=== PATIENT | male | born 1960 | race Caucasian/White ===

== ENCOUNTER 2019-05-03 10:34 | Emergency (ER) | payer OTHER ==
[~2019-05-03] VITALS: Ht 182.9 cm; Wt 89.8 kg
[2019-05-03] MEDS ORDERED: IV NORMAL SALINE 1,000ML 1,000 ML IV SCH (10:50)
--- NOTE | 2019-05-03 10:56 | PHYS DOC ---
Adult General Chief Complaint Chief Complaint: DEHYDRATION HPI HPI Patient is a 58-year-old male who presents with complaint of vomiting and diarrhea for the last few days. Patient indicates that he is feeling very dehydrated and that he is having muscle cramps in his abdomen as well as his legs. He denies any chest pain or shortness breath. He also denies any fever. He states that symptoms are worsened if he tries to eat or drink anything.[] Review of Systems Review of Systems Constitutional: Denies fever or chills [] Respiratory: Denies cough or shortness of breath [] Cardiovascular: No additional information not addressed in HPI [] GI: Complains of abdominal cramping with vomiting and diarrhea [] Integument: Denies rash or skin lesions [] Neurologic: Denies headache, focal weakness or sensory changes [] All other systems were reviewed and found to be within normal limits, except as documented in this note. Physical Exam Physical Exam Constitutional: Well developed, well nourished, no acute distress, non-toxic appearance. [] HENT: Normocephalic, atraumatic, bilateral external ears normal, oropharynx moist, no oral exudates, nose normal. [] Eyes: PERRLA, EOMI, conjunctiva normal, no discharge. [] Neck: Normal range of motion, no tenderness, supple, no stridor. [] Cardiovascular:Heart rate regular rhythm, no murmur [] Lungs & Thorax: Bilateral breath sounds clear to auscultation [] Abdomen: Bowel sounds normal, soft, with epigastric tenderness. [] Skin: Warm, dry, no erythema, no rash. [] Extremities: No tenderness, no cyanosis, no clubbing, ROM intact, no edema. [] Neurologic: Alert and oriented X 3, no focal deficits noted. [] EKG EKG [] Radiology/Procedures Radiology/Procedures [] Course & Med Decision Making Course & Med Decision Making Pertinent Labs and Imaging studies reviewed. (See chart for details) [] Dragon Disclaimer Dragon Disclaimer This electronic medical record was generated, in whole or in part, using a voice recognition dictation system. Departure Departure: Impression: Primary Impression: Gastroenteritis Additional Impression: Dehydration Disposition: 01 HOME, SELF-CARE Condition: STABLE Referrals: PCP,UNKNOWN (PCP) Patient Instructions: Dehydration, Adult, Viral Gastroenteritis Scripts Diphenoxylate Hcl/Atropine (LOMOTIL TABLET) 1 Each Tablet 1 TAB PO TID PRN for DIARRHEA, #15 TAB Prov: BRAD TSAI Jr. DO 05/03/19 Ondansetron Hcl (ZOFRAN) 4 Mg Tablet 4 MG PO Q6HRS PRN for NAUSEA, #12 TAB Prov: BRAD TSAI Jr. DO 05/03/19 Problem Qualifiers BRAD TSAI Jr. DO May 03, 2019 10:56
[2019-05-03] MEDS ORDERED: ONDANSETRON PF 4 MG/2 ML VIAL. IV ONE ×2 (11:00→13:00)
[2019-05-03 11:28] LABS: BACTERIA,URINE 0 /HPF (0-FEW); BILIRUBIN,URINE NEG (NEG); CLARITY,URINE HAZY; COLOR,URINE AMBER; GLUCOSE,URINE NEG (NEG); HYALINE CASTS, URINE OCC /HPF; NITRITE,URINE NEG (NEG); RBC,URINE 0 /HPF (0-2); SQUAMOUS EPITHELIAL CELL,UR OCC /LPF; UROBILINOGEN,URINE 1 mg/dL (0.2 mg/dL); WBC,URINE RARE /HPF (0-4)
[2019-05-03 12:04] LABS: ALBUMIN 3.8 g/dL (3.4-5.0); ALBUMIN/GLOBULIN RATIO 0.9 (1.0-1.7); CALCIUM 9.8 mg/dL (8.5-10.1); CREATININE 1.2 mg/dL (0.7-1.3); GFR 61.8; POTASSIUM 3.9 mmol/L (3.5-5.1); TOTAL BILIRUBIN 0.6 mg/dL (0.2-1.0); TOTAL PROTEIN 7.9 g/dL (6.4-8.2)
[2019-05-03] MEDS ORDERED: KETOROLAC 30 MG/ML VIAL. IV ONE (12:30)
[2019-05-03 12:32] LABS: BASO % 0 % (0-3); EOS # 0.1 x10^3/uL (0.0-0.7); EOS % 1 % (0-3); HEMATOCRIT 41.1 % (39.0-53.0); LYMPH # 1.1 x10^3/uL (1.0-4.8); LYMPH % 12 % (24-48); MEAN CORPUSCULAR HEMOGLOBIN 30 pg (25-35); MEAN CORPUSCULAR HGB CONC 34 g/dL (31-37); MEAN CORPUSCULAR VOLUME 89 fL (79-100); MONO # 0.8 x10^3/uL (0.0-1.1); MONO % 9 % (0-9); NEUT % 78 % (31-73); PLATELET COUNT 256 x10^3/uL (140-400); RED BLOOD COUNT 4.64 x10^6/uL (4.30-5.70); RED CELL DISTRIBUTION WIDTH 13.3 % (11.5-14.5)
[2019-05-03] MEDS ORDERED: IV NORMAL SALINE 1,000ML 1,000 ML IV ONE (13:00)
[2019-05-03 14:15] VITALS: BP 100/63
[2019-05-03] MEDS ORDERED: ONDA4TAB7 PO (14:32)
[2019-05-03] MEDS ORDERED: DIPH1TAB PO (14:32)
== END 2019-05-03 14:50 | disposition home or self-care (01) ==
LOC: ER 10:34
DX: K52.9 Noninfective gastroenteritis and colitis, unspecified (principal); E86.0 Dehydration
CPT/HCPCS: 36415; 80053; 81001; 82550; 83690; 85025; 96361; 96374; 96375; 96376; 99285; J1885; J2405; J7030

== ENCOUNTER 2020-06-21 14:04 | Emergency (ER) | payer OTHER ==
[~2020-06-21] VITALS: Ht 182.9 cm; Wt 93.0 kg
[~2020-06-21 14:04] MED LIST: DIPH1TAB PO; ONDA4TAB7 PO
[2020-06-21 14:08] VITALS: BP 147/90
--- NOTE | 2020-06-21 15:26 | RAD ---
HAND RIGHT 3V 06/21/2020 2:19 PM INDICATION: Crush injury to the finger COMPARISON: None available. TECHNIQUE: 3 views of the right hand are provided. FINDINGS/ IMPRESSION: Comminuted fracture of the distal tuft of the third digit. There is a obliquely oriented fracture extending to the base of the distal phalanx of the third digit with intrahepatic or extension. Regional soft tissue swelling is present. Electronically signed by: Marce Plascencia MD (06/21/2020 3:23 PM) [id number]
[2020-06-21] MEDS ORDERED: HYDR-3165 PO (15:32)
--- NOTE | 2020-06-21 15:32 | PHYS DOC ---
Past History Past Medical History: IBS Past Surgical History: No Surgical History Alcohol Use: Occasionally Additional Alcohol Information: 1 beer a week Drug Use: None General Adult EDM: Chief Complaint: HAND PROBLEM HPI: HPI: Patient is a 59-year-old male who presented to ER today for evaluation of right finger injury. Patient was working on his WET TILE SAW, THE STAND COLLAPSED ONTO HIS RIGHT MIDDLE FINGER, HAPPENED ABOUT 1 HOUR AGO. Review of Systems: Review of Systems: Constitutional: Denies fever or chills Eyes: Denies change in visual acuity HENT: Denies nasal congestion or sore throat Respiratory: Denies cough or shortness of breath Cardiovascular: Denies chest pain or edema GI: Denies abdominal pain, nausea, vomiting, bloody stools or diarrhea : Denies dysuria Musculoskeletal: Denies back pain , POSITIVE FOR RIGHT FINGER PAIN. Integument: Denies rash Neurologic: Denies headache, focal weakness or sensory changes Endocrine: Denies polyuria or polydipsia Lymphatic: Denies swollen glands Psychiatric: Denies depression or anxiety Heart Score: Risk Factors: Risk Factors: DM, Current or recent (<one month) smoker, HTN, HLP, family history of CAD, obesity. Risk Scores: Score 0 - 3: 2.5% MACE over next 6 weeks - Discharge Home Score 4 - 6: 20.3% MACE over next 6 weeks - Admit for Clinical Observation Score 7 - 10: 72.7% MACE over next 6 weeks - Early Invasive Strategies Allergies: Allergies: Allergies Coded Allergies Type Severity Reaction Last Updated Verified No Known Drug Allergies 05/03/19 No Physical Exam: PE: Constitutional: Well developed, well nourished, no acute distress, non-toxic appearance. [] HENT: Normocephalic, atraumatic, bilateral external ears normal, oropharynx moist, no oral exudates, nose normal. [] Eyes: PERRLA, EOMI, conjunctiva normal, no discharge. [] Neck: Normal range of motion, no tenderness, supple, no stridor. [] Cardiovascular:Heart rate regular rhythm, no murmur [] Lungs & Thorax: Bilateral breath sounds clear to auscultation [] Abdomen: Bowel sounds normal, soft, no tenderness, no masses, no pulsatile masses. [] Skin: Warm, dry, no erythema, no rash. [] Back: No tenderness, no CVA tenderness. [] Extremities: RIGHT MIDDLE FINGER IS TENDER AND SWELLING AT THE DISTAL PHALANGEAL JOINT AND AT THE NAIL BED, NO OPEN WOUND. Neurologic: Alert and oriented X 3, normal motor function, normal sensory function, no focal deficits noted. [] Psychologic: Affect normal, judgement normal, mood normal. [] Current Patient Data: Vital Signs: Vital Signs Date Time Temp Pulse Resp B/P (MAP) Pulse Ox O2 Delivery O2 Flow Rate FiO2 06/21/20 14:08 97.7 77 16 147/90 (109) 97 Room Air EKG: EKG: [] Radiology/Procedures: Radiology/Procedures: [][address] [address] IMAGING REPORT Signed PATIENT: BENNETT TAY ACCOUNT: [id number] : 1960 LOCATION: ER AGE: 59 SEX: M EXAM STATUS: REG ER ORD. PHYSICIAN: BUZZ MOULTON DO REASON: crush injury to finger PROCEDURE: HAND RIGHT 3V HAND RIGHT 3V 06/21/2020 2:19 PM INDICATION: Crush injury to the finger COMPARISON: None available. TECHNIQUE: 3 views of the right hand are provided. FINDINGS/ IMPRESSION: Comminuted fracture of the distal tuft of the third digit. There is a obliquely oriented fracture extending to the base of the distal phalanx of the third digit with intrahepatic or extension. Regional soft tissue swelling is present. Electronically signed by: Rikki Owen MD (06/21/2020 3:23 PM) [id number] DICTATED AND SIGNED BY: RIKKI OWEN MD DATE: 06/21/20 1523 CC: FLORA GIBSON; BUZZ MOULTON DO ~ Course & Med Decision Making: Course & Med Decision Making Pertinent Labs and Imaging studies reviewed. (See chart for details) Patient is a 59-year-old man who was evaluated in ER due to right middle finger injury. He was found to have fracture at the tuft and the distal phalanx fracture of the right middle finger. AN aluminum finger splint was applied to his right middle finger by THIS PHYSICIAN. Patient was discharged home in stable condition he will need to follow-up with orthopedic doctor for outpatient follow-up. Mayra Disclaimer: Mayra Disclaimer: This electronic medical record was generated, in whole or in part, using a voice recognition dictation system. Departure Departure: Impression: Primary Impression: Fracture, finger, distal phalanx Disposition: HOME/RESIDENCE PRIOR TO ADM Condition: STABLE Referrals: FLORA GIBSON (PCP) CAMRYN RICHARDSON MD PLEASE CALL THE ORTHOPEDIC SURGEON BELOW TOMORROW FOR OUTPATIENT FOLLOW UP , Patient Instructions: Finger Fracture Scripts Hydrocodone Bit/Acetaminophen (NORCO 5-325 TABLET) 1 Each Tablet 1 TAB PO PRN Q6HRS PRN for PAIN, #15 TAB 0 Refills Prov: BUZZ MOULTON DO 06/21/20 Justification of Admission: Justification of Admission: Justification of Admission Dx: N/A BUZZ MOULTON DO Jun 21, 2020 15:32
== END 2020-06-21 15:37 | disposition home or self-care (01) ==
LOC: ER 14:04
DX: S62.632A Displaced fracture of distal phalanx of right middle finger, initial encounter for closed fracture (principal); K58.9 Irritable bowel syndrome, unspecified; W20.8XXA Other cause of strike by thrown, projected or falling object, initial encounter; Y93.89 Activity, other specified; Y92.89 Other specified places as the place of occurrence of the external cause; Y99.8 Other external cause status
CPT/HCPCS: 29130; 73130; 99283

== ENCOUNTER 2020-12-05 09:17 | Emergency (ER) | payer OTHER ==
[~2020-12-05] VITALS: Ht 182.9 cm; Wt 93.0 kg
[~2020-12-05 09:17] MED LIST changes: +HYDR-3165 PO
[2020-12-05] MEDS ORDERED: ONDANSETRON ODT 4 MG TAB.RAPDIS ONE (09:25)
[2020-12-05] MEDS ORDERED: ONDANSETRON PF 4 MG/2 ML VIAL. IVP ONE (10:00)
[2020-12-05] MEDS ORDERED: ONDANSETRON ODT 4 MG TAB.RAPDIS PO ONE (10:00)
[2020-12-05] MEDS ORDERED: MORPHINE SULFATE 4 MG/ML DISP.SYRIN. IV ONE ×2 (10:00→11:45)
[2020-12-05] MEDS ORDERED: IOHEXOL 240 MG/ML 50ML VIAL. ONE (10:00)
[2020-12-05] MEDS ORDERED: IV NORMAL SALINE 1,000ML 1,000 ML IV ONE ×2 (10:00→11:30)
[2020-12-05] MEDS ORDERED: IOHEXOL 300 MG/ML 75 ML VIAL. IV ONE (10:00)
[2020-12-05] MEDS ORDERED: IOHEXOL 240 MG/ML 50ML VIAL. PO ONE (10:00)
[2020-12-05] MEDS ORDERED: FAMOTIDINE 20 MG/2 ML VIAL ONE (10:05)
[2020-12-05 10:09] LABS: BASO # 0.1 x10^3/uL (0.0-0.2); BASO % 1 % (0-3); CALCIUM 9.6 mg/dL (8.5-10.1); EOS % 0 % (0-3); GFR 75.7; HEMATOCRIT 51.7 % (39.0-53.0); HEMOGLOBIN 17.3 g/dL (13.0-17.5); LYMPH # 1.7 x10^3/uL (1.0-4.8); LYMPH % 12 % (24-48); MEAN CORPUSCULAR HEMOGLOBIN 29 pg (25-35); MEAN CORPUSCULAR HGB CONC 34 g/dL (31-37); MEAN CORPUSCULAR VOLUME 87 fL (79-100); MONO # 0.8 x10^3/uL (0.0-1.1); MONO % 5 % (0-9); NEUT # 11.8 x10^3uL (1.8-7.7); NEUT % 82 % (31-73); PLATELET COUNT 390 x10^3/uL (140-400); RED BLOOD COUNT 5.93 x10^6/uL (4.30-5.70); WHITE BLOOD COUNT 14.3 x10^3/uL (4.0-11.0)
[2020-12-05 10:15] LABS: ALBUMIN 4.2 g/dL (3.4-5.0); ALBUMIN/GLOBULIN RATIO 0.9 (1.0-1.7); TOTAL BILIRUBIN 0.7 mg/dL (0.2-1.0); TOTAL PROTEIN 8.7 g/dL (6.4-8.2)
[2020-12-05] MEDS ORDERED: CONTRAST GIVEN. MC PRN (10:15)
[2020-12-05 10:17] LABS: POTASSIUM 4.9 mmol/L (3.5-5.1)
[2020-12-05] MEDS ORDERED: FAMOTIDINE 20 MG/2 ML VIAL IVP ONE (10:45)
--- NOTE | 2020-12-05 11:31 | RAD ---
CT ABDOMEN+PELVIS W History: RLQ, periumbilical abd pain, vomiting Comparison: None. Technique: After administration of intravenous contrast, helical CT of the abdomen and pelvis was per formed from the lung bases through the ischial tuberosities. Coronal and sagittal reconstructions wer e obtained. 100 mL of Omnipaque 300 were used. One or more of the following dose reduction techniques were utilized: Automated exposure control (AEC), Adjustment of mA and/or kV according to patient siz e, Use of iterative reconstruction technique such as ASiR, CT scan done according to ALARA and image gently/image wisely Abdomen Findings: The visualized lung bases are clear. The liver, gallbladder, pancreas, spleen, and bilateral adrenal glands are normal. Symmetric renal enhancement. There is no focal renal mass. There is no hydronephrosis. Multiple dilated loops of small bowel with air-fluid levels measuring up to 3.5 cm in diameter, with transition to partially decompressed distal small bowel in the right hemiabdomen (series 2 images 40- 46). Colonic diverticulosis. Appendix is not seen. There is no free fluid. There is no mesenteric or retroperitoneal adenopathy. The abdominal aorta is normal in caliber. Pelvis Findings: Urinary bladder is normal. No pelvic free fluid. There is no pelvic or inguinal adenopathy. Degenerative changes of the spine. IMPRESSION: 1. Multiple dilated loops of small bowel with transition to partially decompressed distal small bowel in the right hemiabdomen, concerning for partial or developing small bowel obstruction. 2. Mild pelvic free fluid. 3. Colonic diverticulosis. Electronically signed by: Zhao Mahoney MD (12/05/2020 11:29 AM) [id number]
[2020-12-05] MEDS ORDERED: LIDOCAINE 2% JELLY 10ML IN APPLICATOR. ONE ×2 (11:49→12:04)
--- NOTE | 2020-12-05 12:21 | RAD ---
EXAM: ABDOMEN ONE VIEW. HISTORY: Nasogastric tube placement. Small bowel obstruction. COMPARISON: 12/05/2020. FINDINGS: A frontal view of the abdomen is obtained. A nasogastric tube has its proximal sidehole at the gastroesophageal junction, recommend advancement. There is mild distention of small bowel loops in the left upper quadrant containing air-fluid levels. There is minimal gas distally. IMPRESSION: 1. Recommend advancement of the nasogastric tube by 5 cm. 2. Findings consistent with small bowel obstruction. Electronically signed by: Liberty Benitez MD (12/05/2020 12:19 PM) [facility]
--- NOTE | 2020-12-05 12:26 | PHYS DOC ---
Past History Past Medical History: IBS, Kidney Stones Past Surgical History: No Surgical History Alcohol Use: Occasionally Drug Use: None Adult General Chief Complaint Chief Complaint: MULTIPLE COMPLAINTS [facility] HPI Patient is a 60-year-old male with past medical history of IBS who presents to the emergency room complaining of severe periumbilical abdominal pain that started last night. Pain has been ongoing and he states it has progressively gotten worse. Pain feels like a cramping gurgling sensation. He has not tried to take anything for it at home. He does have associated nausea and vomiting. He denies any kind of diarrhea. He has not had any known constipation. He has never had pain like this previously. He denies any known fever. He has not tried to eat or drink anything since the pain started. Review of Systems Review of Systems Complete ROS is negative unless otherwise documented in HPI Current Medications Current Medications Current Medications Medications (Trade) Dose Ordered Sig/Andrew Start Time Stop Time Status Last Admin Dose Admin Famotidine (Pepcid Vial) 20 mg 1X ONCE 12/05/20 10:45 12/05/20 11:01 DC 12/05/20 11:39 20 MG Info (Do NOT chart on this entry -- for MONITORING) 1 each PRN DAILY PRN 12/05/20 10:15 12/07/20 10:14 Iohexol (Omnipaque 240 Mg/ml) 50 ml STK-MED ONCE 12/05/20 10:00 12/05/20 10:01 DC Iohexol (Omnipaque 300 Mg/ml) 75 ml 1X ONCE 12/05/20 10:00 12/05/20 10:01 DC 12/05/20 11:04 75 ML Lidocaine HCl (Uro-Jet) 10 zenobia STK-MED ONCE 12/05/20 12:04 12/05/20 12:05 DC Morphine Sulfate (Morphine 4mg Syringe) 4 mg 1X ONCE 12/05/20 11:45 12/05/20 11:49 DC 12/05/20 11:40 4 MG Ondansetron HCl (Zofran Odt) 4 mg 1X ONCE 12/05/20 10:00 12/05/20 10:01 DC 12/05/20 10:04 4 MG Ondansetron HCl (Zofran) 4 mg 1X ONCE 12/05/20 10:00 12/05/20 10:01 DC 12/05/20 10:03 4 MG Sodium Chloride 1,000 ml @ 1,000 mls/hr 1X ONCE 12/05/20 11:30 12/05/20 12:29 12/05/20 11:39 1,000 MLS/HR Allergies Allergies Allergies Coded Allergies Type Severity Reaction Last Updated Verified No Known Drug Allergies 05/03/19 No Physical Exam Physical Exam General: Awake, alert, NAD. Well Nourished, well hydrated. Cooperative HEENT: Atraumatic, EOMI, PERRL, airway patent, moist oral mucosa Neck: Supple, trachea midline Respiratory: CTA bilaterally, normal effort, no wheezing/crackles CV: RRR, no murmur, cap refill <2 GI: Soft, distended, diffuse tenderness worse in the periumbilical and right lower quadrant area MSK: No obvious deformities Skin: Warm, dry, intact Neuro: A&O x3, speech NL, sensory and motor grossly intact, no focal deficits Psych: Normal affect, normal mood, not suicidal or homicidal Current Patient Data Vital Signs Vital Signs Date Time Temp Pulse Resp B/P (MAP) Pulse Ox O2 Delivery O2 Flow Rate FiO2 12/05/20 09:53 86 22 141/96 (111) 99 Room Air 12/05/20 09:18 98.0 Lab Results Laboratory Tests Test 12/05/20 09:47 White Blood Count 14.3 x10^3/uL (4.0-11.0) H Red Blood Count 5.93 x10^6/uL (4.30-5.70) H Hemoglobin 17.3 g/dL (13.0-17.5) Hematocrit 51.7 % (39.0-53.0) Mean Corpuscular Volume 87 fL (79-100) Mean Corpuscular Hemoglobin 29 pg (25-35) Mean Corpuscular Hemoglobin Concent 34 g/dL (31-37) Red Cell Distribution Width 14.0 % (11.5-14.5) Platelet Count 390 x10^3/uL (140-400) Neutrophils (%) (Auto) 82 % (31-73) H Lymphocytes (%) (Auto) 12 % (24-48) L Monocytes (%) (Auto) 5 % (0-9) Eosinophils (%) (Auto) 0 % (0-3) Basophils (%) (Auto) 1 % (0-3) Neutrophils # (Auto) 11.8 x10^3uL (1.8-7.7) H Lymphocytes # (Auto) 1.7 x10^3/uL (1.0-4.8) Monocytes # (Auto) 0.8 x10^3/uL (0.0-1.1) Eosinophils # (Auto) 0.0 x10^3/uL (0.0-0.7) Basophils # (Auto) 0.1 x10^3/uL (0.0-0.2) Sodium Level 138 mmol/L (136-145) Potassium Level 4.9 mmol/L (3.5-5.1) Chloride Level 99 mmol/L (98-107) Carbon Dioxide Level 29 mmol/L (21-32) Anion Gap 10 (6-14) Blood Urea Nitrogen 11 mg/dL (8-26) Creatinine 1.0 mg/dL (0.7-1.3) Estimated GFR (Cockcroft-Gault) 75.7 BUN/Creatinine Ratio 11 (6-20) Glucose Level 127 mg/dL (70-99) H Lactic Acid Level 2.8 mmol/L (0.4-2.0) H Calcium Level 9.6 mg/dL (8.5-10.1) Total Bilirubin 0.7 mg/dL (0.2-1.0) Aspartate Amino Transferase (AST) 34 U/L (15-37) Alanine Aminotransferase (ALT) 35 U/L (16-63) Alkaline Phosphatase 116 U/L (46-116) Total Protein 8.7 g/dL (6.4-8.2) H Albumin 4.2 g/dL (3.4-5.0) Albumin/Globulin Ratio 0.9 (1.0-1.7) L Lipase 70 U/L (73-393) L EKG EKG [] Radiology/Procedures Radiology/Procedures [] Heart Score Risk Factors: Risk Factors: DM, Current or recent (<one month) smoker, HTN, HLP, family history of CAD, obesity. Risk Scores: Risk Factors: DM, Current or recent (<one month) smoker, HTN, HLP, family history of CAD, obesity. Course & Med Decision Making Course & Med Decision Making Pertinent Labs and Imaging studies reviewed. (See chart for details) Patient is a 60 year-old male with a history of IBS who presents to the Emergency Room complaining of abdominal pain and vomiting. On exam, patient is actively vomiting, has abdominal tenderness and distention. Due to patients history, age, and exam work up will need to be done to evaluate for intra- abdominal pathology. Work up ordered includes CBC, CMP, lipase, UA, CT abdomen and pelvis. Patient's pain does not epigastric and a cardiac evaluation is not be needed for atypical pain. Ddx includes gastroenteritis, appendicitis, acute cholecystitis, colitis, diverticulitis, small bowel obstruction. Work up was reviewed and patient has a small bowel obstruction. NG was placed. I have discussed with the patient that he will likely need to be transferred to a hospital who is GI or surgery patient requests [facility]. [facility] was called and state they do not have a surgeon who can consult on him today and refused the transfer. I have discussed this with the patient. Patient states that he would then like to go over the [facility]. I discussed the case with [facility]. Covid test is negative. He has been accepted and will be transferred to [place]. Patient is significantly better after NG tube placement. Abdomen is no longer tender and is soft. Dragon Disclaimer Dragon Disclaimer This electronic medical record was generated, in whole or in part, using a voice recognition dictation system. Departure Departure: Impression: Primary Impression: Small bowel obstruction Disposition: 02 DC/TRF OTHER SHORT TERM HOS Condition: STABLE Referrals: FLROA GIBSON (PCP) KIM ANNA MD Dec 05, 2020 12:26
[2020-12-05 12:37] LABS: BACTERIA,URINE 0 /HPF (0-FEW); BILIRUBIN,URINE NEG (NEG); CLARITY,URINE CLEAR; COLOR,URINE YELLOW; GLUCOSE,URINE NEG (NEG); NITRITE,URINE NEG (NEG); RBC,URINE OCC /HPF (0-2); SQUAMOUS EPITHELIAL CELL,UR OCC /LPF; UROBILINOGEN,URINE 0.2 mg/dL (0.2 mg/dL); WBC,URINE OCC /HPF (0-4)
[2020-12-05 14:11] VITALS: BP 151/92
== END 2020-12-05 14:37 | disposition short-term general hospital (02) ==
LOC: ER 09:17
DX: K56.699 Other intestinal obstruction unspecified as to partial versus complete obstruction (principal); Z20.822 Contact with and (suspected) exposure to COVID-19; R10.33 Periumbilical pain; R20.2 Paresthesia of skin; R11.2 Nausea with vomiting, unspecified; Z87.442 Personal history of urinary calculi
CPT/HCPCS: 36415; 74018; 74177; 80053; 81001; 83605; 83690; 85025; 87426; 96361; 96374; 96375; 96376; 99285; C9803; J2270; J2405; J3490; J7030; Q0162; Q9967; U0003

== ENCOUNTER → 2021-11-09 | Outpatient (CLI) | payer OTHER ==
--- NOTE | 2021-11-10 04:38 | RAD ---
3 views of right shoulder dated 11/09/2021. COMPARISON: None. CLINICAL HISTORY: Shoulder pain and neck pain FINDINGS: 3 views the right shoulder show normal bony alignment. No displaced fracture. No periostitis or bone destruction. Mild hypertrophic change of the AC joint. IMPRESSION: No acute findings. Electronically signed by: Danny Ortiz MD (11/10/2021 4:35 AM) [facility]
--- NOTE | 2021-11-10 08:59 | RAD ---
XR CERVICAL SPINE 4-5V History: Reason: NECK AND SHOULDER PAIN / Spl. Instructions: / History: Technique: 5 views cervical spine. Comparison: None. Findings: Straightening of the cervical spine. Normal vertebral body height. No acute fracture. Moderate degene rative disc changes most prominent C5-C6 and C6-C7. Prevertebral soft tissues are unremarkable. Facet arthropathy. Normal alignment C1 on C2. Impression: 1. Moderate cervical spondylosis. Electronically signed by: Jalil Ortiz DO (11/10/2021 8:56 AM) [id number]
== END ==
LOC: RAD 15:29
PROVIDERS: ATTEND Physician Assistant
DX: M47.812 Spondylosis without myelopathy or radiculopathy, cervical region (principal); M50.322 Other cervical disc degeneration at C5-C6 level; M25.811 Other specified joint disorders, right shoulder
CPT/HCPCS: 72050; 73030